=== PATIENT | female | born 1970 | race Caucasian/White ===

== ENCOUNTER → 2017-05-21 | Outpatient (CLI) | payer OTHER ==
[~2017-05-21] MED LIST: CALCTAB7 PO; CHOL100027 PO; HYDR1TAB2 PO; MULTTAB58 PO; ONDA4TAB7 SL; OXYC7.5T78 PO; TAMS0.4C59 PO; TRAMTAB5 PO; VIT B COMPLEX PO; VIT C PO; [UNRECOGNIZED DRUG - OTHER]
[2017-05-21 18:32] LABS: BLOOD UREA NITROGEN 19 mg/dl (7-18); BUN/CREATININE RATIO 24.4 (10-20); CALCIUM 8.5 mg/dl (8.5-10.1); CARBON DIOXIDE 28 mmol/L (21-32); CHLORIDE 106 mmol/L (98-107); CREATININE 0.79 mg/dl (0.60-1.20); GLUCOSE 110 mg/dl (70-99); SODIUM 139 mmol/L (136-145)
== END | disposition home or self-care (01) ==
LOC: C.LAB 17:36
PROVIDERS: ATTEND Family Medicine
DX: E89.2 Postprocedural hypoparathyroidism (principal); N20.0 Calculus of kidney

== ENCOUNTER → 2017-10-24 | Outpatient (CLI) | payer BC | END | disposition home or self-care (01) | LOC: C.MAMM 08:25 | PROVIDERS: ATTEND Family Medicine | DX: M81.0 Age-related osteoporosis without current pathological fracture (principal); M85.88 Other specified disorders of bone density and structure, other site ==

== ENCOUNTER 2018-01-17 11:23 | Emergency (ER) | payer BC ==
[~2018-01-17] VITALS: Ht 177.8 cm; Wt 73.7 kg
[2018-01-17 11:26] VITALS: TEMP 36.9
[2018-01-17] MEDS ORDERED: ALBUTEROL 0.083% NEBU SOLN 3 ML VIAL INH STA (11:40)
[2018-01-17] MEDS ORDERED: KETOROLAC TROMETHAMINE 30 MG/ML VIAL IV STA (11:40)
[2018-01-17] MEDS ORDERED: SODIUM CHLORIDE 0.9% 1000ML 1,000 ML IV STA (11:40)
[2018-01-17 11:56] VITALS: O2SAT 94; Ht 177.8 cm; Wt 73.7 kg
[2018-01-17 12:02] LABS: BASO % 0.3 %; BASO ABS # 0.01 K/uL (0-0.2); EOS % 0.3 %; EOS ABS # 0.01 K/uL (0-0.5); HEMATOCRIT 42.2 % (37-47); HEMOGLOBIN 14.5 g/dL (12.0-16.0); LYMPH % 29.3 %; LYMPH ABS # 1.03 K/uL (1.2-3.4); MEAN CELL VOLUME 83.2 fL (80-100); MEAN CORPUSCULAR HEMOGLOBIN 28.6 pg (25-34); MEAN CORPUSCULAR HGB CONC 34.4 g/dl (32-36); MEAN PLATELET VOLUME 10.3 fL (7.4-10.4); MONO % 12.2 %; MONO ABS # 0.43 K/uL (0.11-0.59); NEUT % 57.9 %; NEUT ABS # 2.04 K/uL (1.4-6.5); PLATELET COUNT 141 K/uL (130-400); RED CELL DISTRIBUTION WIDTH CV 13.9 % (11.5-14.5); RED CELL DISTRIBUTION WIDTH SD 41.9 fL (36.4-46.3); WHITE BLOOD COUNT 3.52 K/uL (4.8-10.8)
--- NOTE | 2018-01-17 12:13 | DIAGNOSTIC IMAGING REPORT ---
SINGLE VIEW CHEST CLINICAL HISTORY: Cough. FINDINGS: An AP, portable, upright chest radiograph is compared to study dated 04/03/2014 and correlated with chest CT dated 07/26/2012. The examination is mildly degraded by portable technique and patient rotation. The cardiomediastinal silhouette is unremarkable. The lungs and pleural spaces are clear. No pneumothorax is seen. The bony thorax is grossly intact. IMPRESSION: No acute cardiopulmonary abnormality. Electronically signed by: Tyree Park M.D. 01/17/2018 12:12 PM Dictated Date/Time: 01/17/2018 12:11 PM
[2018-01-17 12:14] LABS: ALBUMIN 3.4 gm/dl (3.4-5.0); CALCIUM 8.7 mg/dl (8.5-10.1); CREATININE 0.82 mg/dl (0.60-1.20); POTASSIUM 3.7 mmol/L (3.5-5.1)
[2018-01-17 12:17] LABS: TOTAL PROTEIN 6.8 gm/dl (6.4-8.2)
--- NOTE | 2018-01-17 12:19 | EMERGENCY ROOM VISIT NOTE ---
History Report prepared by Lin: Dottie Irvin Under the Supervision of: Dr. Vin Calzada M.D. First contact with patient: 11:34 Chief Complaint: FLU LIKE SX Stated Complaint: DEHYDRATED,BODY ACHES, CHEST CONGESTION History of Present Illness The patient is a 47 year old female who presents to the Emergency Room with complaints of constant flu-like symptoms for the past 3 days. She woke up 3 days ago and states that she felt awful and generally achy all over. This has persisted for 3 days. The patient reports body aches, sore throat, chest congestion, and loss of appetite. She has not been eating or drinking much. She tried taking ibuprofen for her symptoms but it did not help. The patient denies nausea, vomiting, diarrhea, abdominal pain, and urinary symptoms. She did have a flu shot this year. Source of History: patient Onset: 3 days ago Position: other (global) Quality: ache, other (flu-like) Timing: constant Associated Symptoms: + sorethroat, No nausea, No vomiting, No abdominal pain , No diarrhea, No urinary symptoms Note: Pt notes chest congestion and loss of appetite. Review of Systems See HPI for pertinent positives & negatives. A total of 10 systems reviewed and were otherwise negative. Past Medical & Surgical Medical Problems: (1) CALCULUS OF URETER (2) Hysterectomy (3) Lithotripsy (4) Osteoporosis (5) Primary hyperparathyroidism Family History No pertinent history stated. Social History Smoking Status: Never Smoker Alcohol Use: occasionally Occupation Status: employed Current/Historical Medications Scheduled Axtell (Axtell), 3 MG PO DAILY Cholecalciferol (Vitamin D 1000 Unit), 5,000 INTER.UNIT PO DAILY Potassium Citrate (Alkalinizer (Potassium Citrate ER), 1,080 MG PO DAILY Allergies Coded Allergies: No Known Allergies (Unverified , 01/17/18) Physical Exam Vital Signs Date Time Temp Pulse Resp B/P (MAP) Pulse Ox O2 Delivery O2 Flow Rate FiO2 01/17/18 12:47 95 18 115/75 95 01/17/18 12:21 84 01/17/18 11:56 94 Room Air 01/17/18 11:26 36.9 96 20 118/83 92 Room Air Physical Exam GENERAL: Awake, alert, well-appearing, in no acute distress HENT: Normocephalic, atraumatic. Oropharynx unremarkable. EYES: Normal conjunctiva. Sclera non-icteric. NECK: Supple. No nuchal rigidity. FROM. No JVD. RESPIRATORY: Clear to auscultation. CARDIAC: Regular rate, normal rhythm. Extremities warm and well perfused. Pulses equal. ABDOMEN: Soft, non-distended. No tenderness to palpation. No rebound or guarding. No masses. RECTAL: Deferred. MUSCULOSKELETAL: Chest examination reveals no tenderness. The back is symmetrical on inspection without obvious abnormality. There is no CVA tenderness to palpation. No joint edema. LOWER EXTREMITIES: Calves are equal size bilaterally and non-tender. No edema. No discoloration. NEURO: Normal sensorium. No sensory or motor deficits noted. SKIN: No rash or jaundice noted. Medical Decision & Procedures ER Provider Diagnostic Interpretation: Radiology results as stated below per my review and radiologist interpretation: SINGLE VIEW CHEST CLINICAL HISTORY: Cough. FINDINGS: An AP, portable, upright chest radiograph is compared to study dated 04/03/2014 and correlated with chest CT dated 07/26/2012. The examination is mildly degraded by portable technique and patient rotation. The cardiomediastinal silhouette is unremarkable. The lungs and pleural spaces are clear. No pneumothorax is seen. The bony thorax is grossly intact. IMPRESSION: No acute cardiopulmonary abnormality. Electronically signed by: Tyree Park M.D. 01/17/2018 12:12 PM Dictated Date/Time: 01/17/2018 12:11 PM Laboratory Results 01/17/18 11:51 Red Blood Count 5.07, Mean Corpuscular Volume 83.2, Mean Corpuscular Hemoglobin 28.6, Mean Corpuscular Hemoglobin Concent 34.4, Mean Platelet Volume 10.3, Neutrophils (%) (Auto) 57.9, Lymphocytes (%) (Auto) 29.3, Monocytes (%) (Auto) 12.2, Eosinophils (%) (Auto) 0.3, Basophils (%) (Auto) 0.3, Neutrophils # (Auto ) 2.04, Lymphocytes # (Auto) 1.03, Monocytes # (Auto) 0.43, Eosinophils # (Auto ) 0.01, Basophils # (Auto) 0.01 01/17/18 11:51 Test 01/17/18 11:41 01/17/18 11:51 Influenza Type A Antigen Neg for Influ A (NEG) Influenza Type B Antigen POS for Influ B (NEG) White Blood Count 3.52 K/uL (4.8-10.8) Red Blood Count 5.07 M/uL (4.2-5.4) Hemoglobin 14.5 g/dL (12.0-16.0) Hematocrit 42.2 % (37-47) Mean Corpuscular Volume 83.2 fL (80-100) Mean Corpuscular Hemoglobin 28.6 pg (25-34) Mean Corpuscular Hemoglobin Concent 34.4 g/dl (32-36) Platelet Count 141 K/uL (130-400) Mean Platelet Volume 10.3 fL (7.4-10.4) Neutrophils (%) (Auto) 57.9 % Lymphocytes (%) (Auto) 29.3 % Monocytes (%) (Auto) 12.2 % Eosinophils (%) (Auto) 0.3 % Basophils (%) (Auto) 0.3 % Neutrophils # (Auto) 2.04 K/uL (1.4-6.5) Lymphocytes # (Auto) 1.03 K/uL (1.2-3.4) Monocytes # (Auto) 0.43 K/uL (0.11-0.59) Eosinophils # (Auto) 0.01 K/uL (0-0.5) Basophils # (Auto) 0.01 K/uL (0-0.2) RDW Standard Deviation 41.9 fL (36.4-46.3) RDW Coefficient of Variation 13.9 % (11.5-14.5) Immature Granulocyte % (Auto) 0.0 % Immature Granulocyte # (Auto) 0.00 K/uL (0.00-0.02) Anion Gap 7.0 mmol/L (3-11) Est Creatinine Clear Calc Drug Dose 90.7 ml/min Estimated GFR () 98.1 Estimated GFR (Non- 84.6 BUN/Creatinine Ratio 23.1 (10-20) Calcium Level 8.7 mg/dl (8.5-10.1) Total Bilirubin 0.5 mg/dl (0.2-1) Aspartate Amino Transf (AST/SGOT) 16 U/L (15-37) Alanine Aminotransferase (ALT/SGPT) 20 U/L (12-78) Alkaline Phosphatase 90 U/L (45-117) Total Creatine Kinase 48 U/L (26-192) Total Protein 6.8 gm/dl (6.4-8.2) Albumin 3.4 gm/dl (3.4-5.0) Globulin 3.4 gm/dl (2.5-4.0) Albumin/Globulin Ratio 1.0 (0.9-2) Labs reviewed by ED physician. Medications Administered Medications (Trade) Dose Ordered Sig/Malini Route Start Time Stop Time Status Last Admin Dose Admin Ketorolac Tromethamine (Toradol Inj) 30 mg NOW STAT IV 01/17/18 11:40 01/17/18 11:42 DC 01/17/18 11:56 30 MG Sodium Chloride 1,000 ml @ 999 mls/hr Q1H1M STAT IV 01/17/18 11:40 01/17/18 12:40 DC 01/17/18 11:56 999 MLS/HR Albuterol Sulfate (Ventolin 0.083% 2.5MG/3ML Neb) 2.5 mg NOW STAT INH 01/17/18 11:40 01/17/18 11:42 DC 01/17/18 11:56 2.5 MG Acetaminophen (Tylenol Tab) 1,000 mg NOW STAT PO 01/17/18 12:26 01/17/18 12:27 DC 01/17/18 12:45 1,000 MG Albuterol (Ventolin Hfa Inhaler) 2 puffs NOW STAT INH 01/17/18 12:26 01/17/18 12:27 DC 01/17/18 12:45 2 PUFFS ECG Per My Interpretation Indication: other (chest congestion) Rate (beats per minute): 90 Rhythm: normal sinus Findings: no ectopy, other (no ST elevation or depression) ED Course 1134: Past medical records reviewed. The patient was evaluated in room A9B. A complete history and physical examination was performed. 1140: Albuterol sulfate 2.5 mg INH, NSS 1000 ml @ 999 mls/hr IV, Toradol 30 mg IV 1224: I reassessed the patient at this time. She is feeling better and resting comfortably. I discussed the results and treatment plan with the patient. I answered all pertaining questions that she had. She expressed understanding and verbalized agreement. I offered her Tamiflu but she declined. The patient will be discharged home. 1226: Albuterol 2 puffs INH, Tylenol 1000 mg PO Medical Decision Differential diagnosis: Etiologies such as viral syndrome, otitis, pharyngitis, pneumonia, influenza, meningitis, urinary tract infection, sepsis, bacteremia, as well as others were entertained. This is a 47-year-old female who presents the emergency department complaining of generalized body aches and pains. I strongly suspect based on the patient's complaints that she has a follow. Symptoms started over 48 hours ago and she is flu positive. I did give her the option of starting Tamiflu however using shared medical decision making along with the fact that the patient's symptoms have been ongoing for longer than 48 hours we decided that the patient would not benefit from. She was given Toradol here in the emergency department and I encouraged use of ibuprofen and Tylenol at home she was also given a breathing treatment as well as an albuterol inhaler. I feel that the patient is well enough to follow-up with her primary care physician. Patient was in agreement with the treatment plan. Medication Reconcilliation Current Medication List: was personally reviewed by me Blood Pressure Screening Patient's blood pressure: Normal blood pressure Impression Primary Impression: Influenza B Scribe Attestation The scribe's documentation has been prepared under my direction and personally reviewed by me in its entirety. I confirm that the note above accurately reflects all work, treatment, procedures, and medical decision making performed by me. Departure Information Dispostion Home / Self-Care Referrals Darrell Nelson III, M.D. (PCP) Forms HOME CARE DOCUMENTATION FORM, IMPORTANT VISIT INFORMATION Patient Instructions ED Flu, My [facility] Additional Instructions Use inhaler twice every 6 hours Take 1000 mg Tylenol every 6 hours Take 600 mg Ibuprofen every 6 hours Increase fluids next 48 hours You have been examined and treated today on an emergency basis only. This is not a substitute for, or an effort to provide, complete comprehensive medical care. It is impossible to recognize and treat all injuries or illnesses in a single emergency department visit. It is therefore important that you follow up closely with Dr Nelson. Call as soon as possible for an appointment. Thank you for your time and consideration. I look forward to speaking with you again soon. Please don't hesitate to call us if you have any questions.
[2018-01-17 12:21] LABS: INFLUENZA B ANTIGEN POS for Influ B (NEG)
[2018-01-17] MEDS ORDERED: POTA1080 PO (12:24)
[2018-01-17] MEDS ORDERED: BORO3CAP PO (12:24)
[2018-01-17] MEDS ORDERED: ALBUTEROL HFA 8 GM INHALER INH STA (12:26)
[2018-01-17] MEDS ORDERED: ACETAMINOPHEN 500 MG TAB PO STA (12:26)
[2018-01-17 12:47] VITALS: BP 115/75; PULSE 95; O2SAT 95
== END 2018-01-17 12:49 | disposition home or self-care (01) ==
LOC: C.EDB 11:25 → C.EDA 12:49
DX: J10.1 Influenza due to other identified influenza virus with other respiratory manifestations (principal); Z87.442 Personal history of urinary calculi; M81.0 Age-related osteoporosis without current pathological fracture; E21.0 Primary hyperparathyroidism; Z79.899 Other long term (current) drug therapy